=== PATIENT | male | born 1975 | race Caucasian/White ===

== ENCOUNTER 2021-06-23 06:09 | Outpatient (REF) | payer BC, SELFPAY ==
[2021-06-23 11:15] LABS: MANUAL DIFF FLAG NO
[2021-06-23 11:31] LABS: Basophils Percent Auto 0.6 % (0-2); Eosinophils Absolute Auto 0.1 X10*3/uL (0.0-0.4); Hematocrit 41.8 % (42-52); Hemoglobin 13.9 g/dl (14.0-18.0); Imm Gran Abs Auto 0.01 X10*3/uL (0.00-0.03); Imm Gran Pct Auto 0.2 % (0.0-0.4); Lymphocytes Absolute Auto 1.8 X10*3/uL (1.2-4.9); Lymphocytes Percent Auto 34.9 % (20-40); Mean Corpuscular HGB Conc 33.3 g/dl (31.0-36.0); Mean Corpuscular Hemoglobin 29.2 pg (27.0-33.0); Mean Corpuscular Volume 87.8 fL (80-98); Mean Platelet Volume 10.8 fL (9.4-12.4); Monocytes Absolute Auto 0.5 X10*3/uL (0.1-1.2); Monocytes Percent Auto 9.6 % (2-11); Neutrophils Absolute Auto 2.8 X10*3/uL (2.0-8.3); Neutrophils Percent Auto 53.7 % (45-73); Platelet Count 186 X10*3/uL (160-400); Red Blood Count 4.76 X10*6/uL (4.60-5.80); Red Cell Distribution Width 12.2 % (11.0-16.0); White Blood Count 5.1 X10*3/uL (4.8-10.8)
[2021-06-23 11:56] LABS: Alanine Aminotransferase 20 U/L (0-40); Albumin Level 4.3 g/dL (3.5-5.0); Alkaline Phosphatase 72 U/L (39-117); Anion Gap 14 (12-20); Aspartate Amino Transferase 34 U/L (5-37); Bilirubin Total 0.6 mg/dL (0.0-1.0); Blood Urea Nitrogen 12 mg/dL (9-16); Calcium 9.6 mg/dL (8.4-10.2); Carbon Dioxide 25 mmol/L (22-29); Chloride 107 mmol/L (96-108); Cholesterol 203 mg/dL; Estimated Glomerular Filt Rate > 60; Glucose Fasting 98 mg/dL (60-99); HDL Cholesterol 53 mg/dL; LDL Cholesterol Calculated 140 mg/dl; Potassium 4.1 mmol/L (3.3-5.1); Sodium 142 mmol/L (135-145); Total Protein 6.9 g/dL (6.5-8.0); Triglycerides 53 mg/dL
== END 2021-06-23 06:10 | disposition home or self-care (01) ==
LOC: HO.HMGCLDS 06:09
PROVIDERS: PCP Internal Medicine; Visit Provider Internal Medicine
DX: Z00.00 Encounter for general adult medical examination without abnormal findings (principal); E78.00 Pure hypercholesterolemia, unspecified
CPT/HCPCS: 36415; 80053; 80061; 85025

== ENCOUNTER 2022-07-10 06:09 | Outpatient (REF) | payer BC, SELFPAY ==
[2022-07-10 11:25] LABS: MANUAL DIFF FLAG NO
[2022-07-10 11:42] LABS: Basophils Percent Auto 0.7 % (0-2); Eosinophils Absolute Auto 0.1 X10*3/uL (0.0-0.4); Eosinophils Percent Auto 1.1 % (0-4); Hematocrit 43.4 % (42.0-52.0); Hemoglobin 14.3 g/dl (14.0-18.0); Lymphocytes Absolute Auto 1.5 X10*3/uL (1.2-4.9); Mean Corpuscular HGB Conc 32.9 g/dl (31.0-36.0); Mean Corpuscular Hemoglobin 28.4 pg (27.0-33.0); Mean Corpuscular Volume 86.1 fL (80.0-98.0); Mean Platelet Volume 10.6 fL (9.4-12.4); Monocytes Absolute Auto 0.5 X10*3/uL (0.1-1.2); Monocytes Percent Auto 10.2 % (2-11); Neutrophils Absolute Auto 2.4 x10*3/uL (2.0-8.3); Platelet Count 199 X10*3/uL (160-400); Red Blood Count 5.04 X10*6/uL (4.60-5.80); White Blood Count 4.4 X10*3/uL (4.8-10.8)
[2022-07-10 11:52] LABS: Appearance Urine Clear; Color Urine Yellow; Glucose Urine UA Negative (Negative); Leukocyte Esterase Urine Negative (Negative); Nitrite Urine Negative (Negative); PH 5.5 (5.0-9.0); Specific Gravity - Urine 1.015 (1.005-1.025); Urine Blood Negative (Negative); Urine Ketones Negative (Negative); Urine Protein Negative (Neg-Trace)
[2022-07-10 11:59] LABS: Bacteria Urine None Seen (None Seen); Hyaline Casts Urine 0-2 /LPF (0-2); RBC Urine 0-2 /HPF (0-2); Squamous Epithelial Cell Urine 0-2 /HPF (0-2); WBC Urine 0-5 /HPF (0-5)
[2022-07-10 12:10] LABS: Alanine Aminotransferase 27 U/L (0-40); Albumin Level 4.4 g/dL (3.5-5.0); Alkaline Phosphatase 76 U/L (39-117); Anion Gap 14 (12-20); Aspartate Amino Transferase 31 U/L (5-37); Bilirubin Total 0.6 mg/dL (0.0-1.0); Blood Urea Nitrogen 17 mg/dL (9-16); Calcium 9.4 mg/dL (8.4-10.2); Carbon Dioxide 26 mmol/L (22-29); Chloride 103 mmol/L (96-108); Cholesterol 235 mg/dL; Estimated Glomerular Filt Rate > 60; Glucose Fasting 105 mg/dL (60-99); HDL Cholesterol 52 mg/dL; LDL Cholesterol Calculated 169 mg/dl; Potassium 4.1 mmol/L (3.3-5.1); Sodium 139 mmol/L (135-145); Total Protein 7.2 g/dL (6.5-8.0); Triglycerides 74 mg/dL
[2022-07-10 12:17] LABS: Thyroid Stimulating Hormone 1.19 uIU/mL (0.32-4.0); Vitamin D 25-OH Total 35.7 ng/mL (>30)
== END 2022-07-10 06:10 | disposition home or self-care (01) ==
LOC: HO.HMGCLDS 06:09
PROVIDERS: PCP Internal Medicine; Visit Provider Internal Medicine
DX: Z00.00 Encounter for general adult medical examination without abnormal findings (principal); E78.00 Pure hypercholesterolemia, unspecified; J30.2 Other seasonal allergic rhinitis
CPT/HCPCS: 36415; 80053; 80061; 81001; 82306; 84443; 85025

== ENCOUNTER 2023-11-22 06:08 | Outpatient (REF) | payer BC, SELFPAY ==
[2023-11-22 11:44] LABS: Basophils Percent Auto 0.6 % (0-2); Eosinophils Absolute Auto 0.1 X10*3/uL (0.0-0.4); Eosinophils Percent Auto 0.9 % (0-4); Hematocrit 44.3 % (42.0-52.0); Hemoglobin 14.8 g/dl (14.0-18.0); Imm Gran Abs Auto 0.01 X10*3/uL (0.00-0.03); Imm Gran Pct Auto 0.2 % (0.0-0.4); Lymphocytes Absolute Auto 1.7 X10*3/uL (1.2-4.9); Lymphocytes Percent Auto 32.1 % (20-40); MANUAL DIFF FLAG NO; Mean Corpuscular HGB Conc 33.4 g/dl (31.0-36.0); Mean Corpuscular Hemoglobin 28.7 pg (27.0-33.0); Mean Corpuscular Volume 85.9 fL (80.0-98.0); Mean Platelet Volume 10.9 fL (9.4-12.4); Monocytes Absolute Auto 0.4 X10*3/uL (0.1-1.2); Monocytes Percent Auto 8.3 % (2-11); Neutrophils Absolute Auto 3.1 x10*3/uL (2.0-8.3); Neutrophils Percent Auto 57.9 % (45-73); Platelet Count 209 X10*3/uL (160-400); Red Blood Count 5.16 X10*6/uL (4.60-5.80); Red Cell Distribution Width 12.1 % (11.0-16.0); White Blood Count 5.3 X10*3/uL (4.8-10.8)
[2023-11-22 12:13] LABS: Alanine Aminotransferase 32 U/L (0-40); Albumin Level 4.3 g/dL (3.5-5.0); Alkaline Phosphatase 88 U/L (39-117); Anion Gap 9 (12-20); Aspartate Amino Transferase 27 U/L (5-37); Bilirubin Total 0.5 mg/dL (0.0-1.0); Blood Urea Nitrogen 14 mg/dL (9-16); Calcium 9.6 mg/dL (8.4-10.2); Carbon Dioxide 29 mmol/L (22-29); Chloride 106 mmol/L (96-108); Cholesterol 230 mg/dL (<200); Estimated Glomerular Filt Rate > 60; Glucose Fasting 83 mg/dL (60-99); HDL Cholesterol 47 mg/dL (>40); LDL Cholesterol Calculated 167 mg/dL (<100); Potassium 3.7 mmol/L (3.3-5.1); Sodium 140 mmol/L (135-145); Total Protein 7.3 g/dL (6.5-8.0); Triglycerides 81 mg/dL (<150)
[2023-11-22 12:18] LABS: Thyroid Stimulating Hormone 1.37 uIU/mL (0.32-4.0)
== END 2023-11-22 06:09 | disposition home or self-care (01) ==
LOC: HO.HMGCLDS 06:08
PROVIDERS: PCP Internal Medicine; Visit Provider Internal Medicine
DX: Z00.00 Encounter for general adult medical examination without abnormal findings (principal); E78.00 Pure hypercholesterolemia, unspecified; J30.2 Other seasonal allergic rhinitis
CPT/HCPCS: 36415; 80053; 80061; 84443; 85025

== ENCOUNTER 2024-03-21 06:10 | Outpatient (REF) | payer BC, SELFPAY ==
[2024-03-21 12:21] LABS: Alanine Aminotransferase 40 U/L (0-40); Albumin Level 4.1 g/dL (3.5-5.0); Alkaline Phosphatase 81 U/L (39-117); Anion Gap 11 (12-20); Aspartate Amino Transferase 51 U/L (5-37); Bilirubin Total 0.5 mg/dL (0.0-1.0); Blood Urea Nitrogen 14 mg/dL (9-16); Calcium 9.6 mg/dL (8.4-10.2); Carbon Dioxide 26 mmol/L (22-29); Chloride 106 mmol/L (96-108); Cholesterol 162 mg/dL (<200); Estimated Glomerular Filt Rate > 60; Glucose Fasting 93 mg/dL (60-99); HDL Cholesterol 47 mg/dL (>40); LDL Cholesterol Calculated 102 mg/dL (<100); Potassium 3.9 mmol/L (3.3-5.1); Sodium 139 mmol/L (135-145); Total Protein 7.1 g/dL (6.5-8.0); Triglycerides 68 mg/dL (<150)
== END 2024-03-21 06:11 | disposition home or self-care (01) ==
LOC: HO.HMGCLDS 06:10
PROVIDERS: PCP Internal Medicine; Visit Provider Internal Medicine
DX: E78.00 Pure hypercholesterolemia, unspecified (principal)
CPT/HCPCS: 36415; 80053; 80061

== ENCOUNTER 2024-11-21 13:24 | Outpatient (AMB) | payer BC, SELFPAY ==
--- NOTE | 2024-11-21 13:58 | A.OFFPC_ITS ---
Vital Signs 11/21/24 14:00 Height 6 ft 2 in Weight 207 lb BMI 26.6 BP 132/62 Blood Pressure Location Rt brachial Pulse 66 Pulse Source Pulse Oximeter Temp 97.1 F Pulse Oximetry (%) 96 Intake Visit Reasons: physical Intake Note: no other issues Allergies No Known Allergies Allergy (Verified 11/21/24 13:59) [facility] Medical History GERD (gastroesophageal reflux disease) Hyperlipidemia, unspecified Physical exam (Primary Care) Vital Signs: Last Vital Signs Temp 97.1 F 11/21/24 14:00 Pulse 66 11/21/24 14:00 BP 132/62 11/21/24 14:00 Pulse Ox 96 11/21/24 14:00 BMI result Body Mass Index 26.6 Coding Level of Care Code New Pt Prev Care 40-64y(69500) Diagnoses Hyperlipidemia, unspecified E78.5 GERD (gastroesophageal reflux disease) K21.9 Assessment & Plan Assessment & Plan (1) Hyperlipidemia, unspecified: Code(s): E78.5 - Hyperlipidemia, unspecified Category: Medical Plan: Fasting bw ordered. Will adjust statin dosage accordingly. (2) GERD (gastroesophageal reflux disease): Code(s): K21.9 - Gastro-esophageal reflux disease without esophagitis Category: Medical Plan: Continue PPI. Has a scheduled appt with GI. A screening colonoscopy has been planned. Plan History of Present Illness The patient is a 49-year-old male presenting to the office for an annual physical. Approximately one year ago, the patient began experiencing regular episodes of heartburn. In response, he started treatment with omeprazole, which proved effective in managing his symptoms. However, when discontinuing the medication, he observed that heartburn symptoms promptly reappeared. The patient has a pending appointment with a community health nurse supervisor scheduled for November. His past medical history includes hyperlipidemia, for which he takes a statin medication, initiated a few years prior, with no current issues requiring medication refills. 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 - Exercise: Engages in physical activity three to five times per week, although activity has recently decreased due to home renovations. - Substance Use: Consumes alcohol infrequently and denies tobacco use. Review of Systems - Gastrointestinal: Reports heartburn. - Eyes: Denies visual disturbances such as halos. - Genitourinary: Denies issues with urination. - Bowel Habits: Regular without complications. - Sexual Health: Denies erectile dysfunction. Physical Exam General: Cooperative and healthy appearing Nutritional Appearance: Well nourished Orientation/consciousness: Patient oriented x3 Limitations: No limitations Head: Normal to inspection General: Appearance normal, both eyes and all related structures Neck: Normal visual inspection Chest: Normal palpation of entire chest wall Respiratory: Normal respiratory effort Neurology: Patient oriented x3 Results - Recent blood work from October last year showed no abnormalities. Plan - Repeat blood work after fasting to monitor lipid levels and general health. - Continue current medications without any changes, including omeprazole for GERD and a statin for hyperlipidemia. - Seasonal allergies to be managed with existing [id number] medications as needed. - Follow up with the community health nurse supervisor for the scheduled colonoscopy and further evaluation of GERD symptoms. - Reassess in six months or as needed based on symptom changes or new concerns. Patient was informed and verbally consented to the use of an ambient scribe for clinic note documentation during this visit. Discussion Notes During the visit, we discussed the importance of continuing current medications for GERD and hyperlipidemia. The patient consented to repeat fasting blood tests to monitor lipid levels. I recommended maintaining dietary and exercise routines to support cardiovascular health. We discussed the planned colonoscopy and its role in preventative health screening. The patient appeared comfortable with the treatment strategy and agreed to follow up in six months unless new symptoms arise. Patient Instructions - Continue taking omeprazole as prescribed to manage heartburn. - Maintain current statin regimen for hyperlipidemia. - Perform fasting blood tests as ordered. - Consult the community health nurse supervisor for the scheduled colonoscopy and further management of reflux symptoms. - Resume regular exercise routines when possible. - Avoid tobacco products and limit alcohol consumption. - Schedule a follow-up appointment in six months. Orders: Orders Basic Metabolic Panel Today E78.5 - Hyperlipidemia, unspecified, K21.9 - Gastro-esophageal reflux disease without esophagitis Thyroid Stimulating Hormone Today E78.5 - Hyperlipidemia, unspecified, K21.9 - Gastro-esophageal reflux disease without esophagitis UA and rflx microscopic Today E78.5 - Hyperlipidemia, unspecified, K21.9 - Gastro-esophageal reflux disease without esophagitis Complete Blood Count no Diff Today E78.5 - Hyperlipidemia, unspecified, K21.9 - Gastro-esophageal reflux disease without esophagitis Lipid Panel Today E78.5 - Hyperlipidemia, unspecified, K21.9 - Gastro- esophageal reflux disease without esophagitis Liver Panel Today E78.5 - Hyperlipidemia, unspecified, K21.9 - Gastro- esophageal reflux disease without esophagitis
[2024-11-21 14:00] VITALS: BP 132/62; PULSE 66; TEMP 36.2; O2SAT 96; BMI 26.6
--- OUTSIDE RECORDS SUMMARY | 2024-11-21 16:29 | XMS_ITS ---
Author Organization Lakhwinder Bronson DO, FACRegla Address [address] [facility] [place] [phone] Care Team Providers Care Open Hearth Melter Name Role Phone Lakhwinder Bronson Primary Care Provider REASON FOR VISIT Message Encounters Encounter Location Date Provider Diagnosis Lakhwinder Bronson DO, FACP [address] [facility] [place] [id number] 04/12/2024 Lakhwinder Bronson PLAN OF TREATMENT No Information
--- OUTSIDE RECORDS SUMMARY | 2024-11-21 16:29 | XMS_ITS ---
Author Organization Lakhwinder Bronson DO, FACRegla Address [address] [facility] [place] [phone] Care Team Providers Care Ironer Hand Name Role Phone Lakhwinder Bronson Primary Care Provider REASON FOR VISIT Message Encounters Encounter Location Date Provider Diagnosis Lakhwinder Bronson DO, FACP [address] [facility] [place] [phone] 08/30/2024 Lakhwinder Bronson PLAN OF TREATMENT No Information
--- OUTSIDE RECORDS SUMMARY | 2024-11-21 16:29 | XMS_ITS | Patient Health Record ---
Author Organization Lakhwinder Bronson DO, FACP Address [address] [place] [address] [place] [phone] Care Team Providers Care Plumber Supervisor Name Role Phone Lakhwinder Bronson Primary Care Provider ALLERGIES No Known Allergies RESULTS Component Value Reference Range Notes Complete Blood Count Auto Di ff Reviewed date:11/22/2023 01:13:02 PM Interpretation:Normal Performing Lab:[facility], [address] [place] [phone] Notes/Report: White Blood Count 5.3 4.8-10.8 X10*3/uL Red Blood Count 5.16 4.60-5.80 X10*6/uL Hemoglobin 14.8 14.0-18.0 g/dl Hematocrit 44.3 42.0-52.0 % Mean Corpuscular Volume 85.9 80.0-98.0 fL Mean Corpuscular Hemoglobin 28.7 27.0-33.0 pg Mean Corpuscular HGB Conc 33.4 31.0-36.0 g/dl Red Cell Distribution Width 12.1 11.0-16.0 % Platelet Count 209 160-400 X10*3/uL Mean Platelet Volume 10.9 9.4-12.4 fL Neutrophils Percent Auto 57.9 45-73 % Imm Gran Pct Auto 0.2 0.0-0.4 % Lymphocytes Percent Auto 32.1 20-40 % Monocytes Percent Auto 8.3 2-11 % Eosinophils Percent Auto 0.9 0-4 % Basophils Percent Auto 0.6 0-2 % NRBC Pct Auto 0.0 0.0-0.2 /100WBC Neutrophils Absolute Auto 3.1 2.0-8.3 x10*3/u L Imm Gran Abs Auto 0.01 0.00-0.03 X10*3/uL Lymphocytes Absolute Auto 1.7 1.2-4.9 X10*3/u L Monocytes Absolute Auto 0.4 0.1-1.2 X10*3/uL Eosinophils Absolute Auto 0.1 0.0-0.4 X10*3/u L Basophils Absolute Auto 0.0 0.0-0.2 X10*3/uL NRBC Abs Auto 0.000 0.0-0.012 X10*3/uL Comprehensive [place]. Panel Fa st Reviewed date:11/22/2023 01:13:02 PM Interpretation:Normal Performing Lab:[facility], [address] [place] [phone] Notes/Report: Sodium 140 135-145 mmol/L Potassium 3.7 3.3-5.1 mmol/L Chloride 106 96-108 mmol/L Carbon Dioxide 29 22-29 mmol/L Anion Gap 9 12-20 Blood Urea Nitrogen 14 9-16 mg/dL Creatinine 1.05 0.5-1.4 mg/dL Estimated Glomerular Filt Rate > 60 NOTE: For -Ugandan individuals, multiply the result by 1.210. Chronic Kidney Disease: Estimated GFR < 60 mL/min/1.73m2 Severe Kidney Disease: Estimated GFR < 15 mL/min/1.73m2 Glucose Fasting 83 60-99 mg/dL Calcium 9.6 8.4-10.2 mg/dL Bilirubin Total 0.5 0.0-1.0 mg/dL Aspartate Amino Transferase 27 5-37 U/L Alanine Aminotransferase 32 0-40 U/L Total Protein 7.3 6.5-8.0 g/dL Albumin Level 4.3 3.5-5.0 g/dL Alkaline Phosphatase 88 39-117 U/L Lipid Panel Reviewed date:11/22/2023 03:51:03 PM Interpretation:Abnormal Performing Lab:[facility], [address] [place] [phone] Notes/Report: Triglycerides 81 <150 mg/dL Desirable Triglyceride: less than 150 mg/dL Borderline High Triglyceride 150-199 mg/dL High Triglyceride: 200-499 mg/dL Very High Triglyceride: greater than or equal to 5OO mg/dL Cholesterol 230 <200 mg/dL Desirable Cholesterol: less than 200 mg/dL Borderline High Cholesterol: 200-239 mg/dL High Cholesterol: greater than 239 mg/dL LDL Cholesterol Calculated 167 <100 mg/dL Desirable LDL: less than 100 mg/dL Near Optimal/Above Optimal LDL: 110-129 mg/dL Borderline High LDL: 130-159 mg/dL High LDL: 160-189 mg/dL Very High LDL: greater than or equal to 190 mg/dL HDL Cholesterol 47 >40 mg/dL Desirable HDL: greater than 40 mg/dL Note: This HDL assay may give artificially low results in patients with liver disease. Thyroid Stimulating Hormone Reviewed date:11/22/2023 01:13:02 PM Interpretation:Normal Performing Lab:[address] [phone] Notes/Report: Thyroid Stimulating Hormone 1.37 0.32-4.0 uIU/ mL TSH 3rd Generation ([facility]) Comprehensive [place]. Panel Fa Reviewed date:03/21/2024 12:37:50 PM Interpretation:Abnormal Performing Lab:[facility], [address] [place] [phone] Notes/Report: Sodium 139 135-145 mmol/L Potassium 3.9 3.3-5.1 mmol/L Chloride 106 96-108 mmol/L Carbon Dioxide 26 22-29 mmol/L Anion Gap 11 12-20 Blood Urea Nitrogen 14 9-16 mg/dL Creatinine 0.93 0.5-1.4 mg/dL Estimated Glomerular Filt Rate > 60 NOTE: For -Ugandan individuals, multiply the result by 1.210. Chronic Kidney Disease: Estimated GFR < 60 mL/min/1.73m2 Severe Kidney Disease: Estimated GFR < 15 mL/min/1.73m2 Glucose Fasting 93 60-99 mg/dL Calcium 9.6 8.4-10.2 mg/dL Bilirubin Total 0.5 0.0-1.0 mg/dL Aspartate Amino Transferase 51 5-37 U/L Alanine Aminotransferase 40 0-40 U/L Total Protein 7.1 6.5-8.0 g/dL Albumin Level 4.1 3.5-5.0 g/dL Alkaline Phosphatase 81 39-117 U/L Lipid Panel Reviewed date:03/21/2024 12:37:36 PM Interpretation:Normal Performing Lab:[facility], [address] [place] [phone] Notes/Report: Triglycerides 68 <150 mg/dL Desirable Triglyceride: less than 150 mg/dL Borderline High Triglyceride 150-199 mg/dL High Triglyceride: 200-499 mg/dL Very High Triglyceride: greater than or equal to 5OO mg/dL Cholesterol 162 <200 mg/dL Desirable Cholesterol: less than 200 mg/dL Borderline High Cholesterol: 200-239 mg/dL High Cholesterol: greater than 239 mg/dL LDL Cholesterol Calculated 102 <100 mg/dL Desirable LDL: less than 100 mg/dL Near Optimal/Above Optimal LDL: 110-129 mg/dL Borderline High LDL: 130-159 mg/dL High LDL: 160-189 mg/dL Very High LDL: greater than or equal to 190 mg/dL HDL Cholesterol 47 >40 mg/dL Desirable HDL: greater than 40 mg/dL Note: This HDL assay may give artificially low results in patients with liver disease. REASON FOR REFERRAL Reason Cyst or wart, right leg Diagnosis 1 Epidermal cyst (L72. 0) Referral Organization Lakhwinder Hinds FACP Referring Provider First Name Lakhwinder Referring Provider Last Name Aiyana Referring Provider Speciality Internal edicine Referred Provider Sanna Nguyen Referred Provider Specialty Dermatology General Notes Sarah Haile 4 12:52:50 PM EDT > Dr. Nguyen's office ask that patient call to set up appointment and patient is aware. Clinical Notes Latrice Ariza 024 11:17:52 AM EDT > REFERRAL GENERATED BASED ON TELEPHONE ENCOUNTER WITH PATIENT Referral Priority Routine Reason Colonoscopy Screenin g Diagnosis 1 Colon cancer screeni ng (Z12.11) Referral Organization Lakhwinder Hinds FACP Referring Provider First Name Lakhwinder Referring Provider Jaylan Name Aiyana Referring Provider Speciality Internal edicine Referred Provider Talha Carolina Referred Provider Specialty Gastroentero logy General Notes Sarah Haile 4 04:09:31 PM EST > Referral faxed prior to scheduling Referral Priority Routine MEDICATIONS Medication SIG (Take, Route, Frequency, Duration) Notes Start Date End Date Status Ibuprofen 800 MG 1 tablet as needed O rally Three times a day 05/07/2015 Active Omeprazole 20 MG 1 capsule 30 minutes before morning meal Orally Once a day for 30 day(s) 11/22/2023 Active ZyrTEC Allergy 10 MG 1 tablet as needed Orally Once a day Active Atorvastatin Calcium 10 MG 1 tablet Oral ly Once a day for 90 days Active IMMUNIZATIONS Vaccine Route Administration Date Status Comme nts TDaP IM Intramuscular 04/30/2015 Administered Influenza Quad IM Intramuscular 07/03/2016 Administered Influenza Quad IM Intramuscular 07/11/2018 Administered Influenza Quad Unknown 07/16/2021 Administered COVID-19 Moderna Vaccine Unknown 08/06/2021 Administere d Influenza Unknown 08/12/2014 Administered Influenza Quad Unknown 06/12/2022 Administered COVID-19 Pfizer BioNTech Unknown 01/02/2021 Administere d COVID-19 Pfizer BioNTech Unknown 01/23/2021 Administere d Influenza Quad Unknown 07/03/2019 Administered Influenza Quad Unknown 07/23/2017 Administered Influenza Quad Unknown 06/28/2020 Administered Influenza Quad Unknown 07/10/2023 Administered SOCIAL HISTORY Tobacco Use: Social History Observation Description Date Details (start date - stop date) Former Smoker NA - NA Sex Assigned At : Social History Observation Description Sex Assigned At Unknown Tobacco Use/Smoking Question Answer Notes Patient is a former smoker How long has it been since y ou last smoked? > 10 years Additional Findings: Tobacco Non-User Fo rmer smoker, currently using no form of tobacco Alcohol Screen Question Answer Notes Did you have a drink contain ing alcohol in the past year? Yes How often did you have a dri nk containing alcohol in the past year? 2 to 4 times a month (2 points) How many drinks did you have on a typical day when you were drinking in the past year? 1 or 2 drinks (0 point) How often did you have 6 or more drinks on one occasion in the past year? Never (0 point) Points 2 Interpretation Negative PROBLEMS Problem Type ICD Code Onset Dates Problem Status W/U Status Risk SNOMED Code Notes Problem Seasonal allergies (J30.2) Active confirmed 074445240 Problem Hypercholesterolemia (E78.00) Active confirmed [id number] Encounters Encounter Location Date Provider Diagnosis Lakhwinder Bronson DO, [facility] [address] [place], [place] [phone] 11/14/2024 Lakhwinder Bronson DO, [facility] [address] [place], [place] [id number] 11/22/2023 Lakhwinder Bronson Hypercholesterolemia E78.00 Lakhwinder Bronson DO, [facility] [address] [place], [place] [phone] 04/12/2024 Lakhwinder Bronson DO, [facility] [address] [place], [place] [phone] 08/30/2024 Lakhwinder Bronson DO, [facility] [address] [place], [place] [phone] 02/18/2024 Lakhwinder Bronson DO, [facility] [address] [place], [place] [phone] 02/18/2024 Lakhwinder Bronson ASSESSMENTS Encounter Date Diagnosis Assessment Notes Treatment Notes Treatment Clinical Notes 11/22/2023 Hypercholesterolemia (ICD-10 - E78.00) PLAN OF TREATMENT No Information Insurance Providers Payer Name Payer Address Payer Phone Subscriber Number Group Number Insured Name Patient Relationship to Insured Coverage Start Date Coverage End Date [facility] [address] [place], [place] [id number] Arturo Cherry Self - patient is the insured 9 MEDICAL (GENERAL) HISTORY Medical History History ICD Code hypercholesterolemia dermatitis seasonal allergies Surgical History Surgery Date(Month/Year) right shoulder surgery for repeated disl ocations wisdom teeth extraction vasectomy 03/2017
--- OUTSIDE RECORDS SUMMARY | 2024-11-21 16:30 | XMS_ITS ---
Author Organization Lakhwinder Bronson DO, FACP Address [address] [facility] [place] [id number] Care Team Providers Care Is/It Project Manager Name Role Phone Lakhwinder Bronson Primary Care Provider Encounters Encounter Location Date Provider Diagnosis Lakhwinder Bronson DO, FACP [address] [facility] [place] [phone] 11/14/2024 Lakhwinder Bronson PLAN OF TREATMENT No Information
== END 2024-11-21 14:20 | disposition home or self-care (01) ==
LOC: HO.HMCSH 13:24
PROVIDERS: PCP Internal Medicine; Visit Provider Internal Medicine
DX: Z00.00 Encounter for general adult medical examination without abnormal findings (principal); E78.5 Hyperlipidemia, unspecified; K21.9 Gastro-esophageal reflux disease without esophagitis

== ENCOUNTER 2025-02-09 07:39 | Day surgery (SDC) | payer BC, SELFPAY ==
[2025-02-07 08:42] VITALS: BMI 26.5
[2025-02-09] VITALS (7 sets, daily range): BP systolic 94–123; BP diastolic 55–74; PULSE 57–69; RESP 11–18; TEMP 36.1–36.8; O2SAT 94–98; BMI 26.6
[2025-02-09] MEDS: Lactated Ringers 1,000 ML 100 ML IVCONT (09:05)
--- NOTE | 2025-02-09 09:35 | P.CONAN_ITS ---
Documented by User: Wilda Ramirez NP 02/08/25 14:08 HPI - Anesthesia Eval Consult details Narrative: 49yo M for Upper Endoscopy and Colonoscopy [facility] Active Problems Active Problems: All Active Problems GERD (gastroesophageal reflux disease) (Acute) Hyperlipidemia, unspecified (Acute) Past Medical History Medical History GERD (gastroesophageal reflux disease) Hyperlipidemia, unspecified Surgical History Surgical History Hx of wisdom tooth extraction Hx of shoulder surgery Social History Social History (Updated 02/07/25 @ 08:43 by Diamond Shannon RN) Household Members: Spouse Are you a primary acute care clinical nurse specialist to a significant other at home: No Do you presently have visiting nurse or other home services: No Patient Tobacco Use Status: Former Tobacco user Have you been hit, kicked, punched, or otherwise hurt by someone within the past year? If so, by whom?: No Are you DNR?: No Advance Directives: No Advance Directives Information Provided: Yes Poor oral hygiene: No Meds Allergies Allergy/AdvReac Type Severity Reaction Status Date / Time No Known Allergies Allergy Verified 02/09/25 09:02 Home Medications ?Medication ?Instructions ?Recorded ?Confirmed ?Last Taken ?Type omeprazole 20 mg capsule,delayed 20 mg PO DAILY 11/21/24 02/07/25 Unknown History release cetirizine 10 mg tablet 10 mg PO DAILY 02/07/25 02/07/25 Unknown History Exam Height,Weight and Vital Signs: Height 6 ft 2 in Weight 93.621 kg Assessment and Plan Assessment Anesthesia Assessment: Chart Reviewed Documented by User: Pati Spears DO 02/09/25 09:52 [facility] Past Medical History Medical History GERD (gastroesophageal reflux disease) Hyperlipidemia, unspecified Family History Family history of problems with anesthesia: No Surgical History Surgical History Hx of wisdom tooth extraction Hx of shoulder surgery History of Problems with Anesthesia: No Social History Social History (Updated 02/07/25 @ 08:43 by Diamond Shannon RN) Household Members: Spouse Are you a primary acute care clinical nurse specialist to a significant other at home: No Do you presently have visiting nurse or other home services: No Patient Tobacco Use Status: Former Tobacco user Have you been hit, kicked, punched, or otherwise hurt by someone within the past year? If so, by whom?: No Are you DNR?: No Advance Directives: No Advance Directives Information Provided: Yes Poor oral hygiene: No Meds Allergies Allergy/AdvReac Type Severity Reaction Status Date / Time No Known Allergies Allergy Verified 02/09/25 09:02 Home Medications ?Medication ?Instructions ?Recorded ?Confirmed ?Last Taken ?Type omeprazole 20 mg capsule,delayed 20 mg PO DAILY 11/21/24 02/07/25 Unknown History release cetirizine 10 mg tablet 10 mg PO DAILY 02/07/25 02/07/25 Unknown History Exam Exam Date and Time: 02/09/25 0935 Height,Weight and Vital Signs: Height 6 ft 2 in Weight 93.621 kg Vital Signs Temperature 98.2 F 02/09/25 09:11 Pulse Rate 57 02/09/25 09:11 Respiratory Rate 18 02/09/25 09:11 Blood Pressure 123/74 02/09/25 09:11 Pulse Oximetry 97 02/09/25 09:11 Oxygen Delivery Method Room Air 02/09/25 09:11 Temperature 98.2 F 02/09/25 09:11 Pulse Rate 57 02/09/25 09:11 Respiratory Rate 18 02/09/25 09:11 Blood Pressure 123/74 02/09/25 09:11 Pulse Oximetry 97 02/09/25 09:11 Oxygen Delivery Method Room Air 02/09/25 09:11 Airway Mallampati Class: I TM Dist: >3cm Neck ROM: Full Loose/Missing/Broken Teeth: No (patient denies any loose or broken teeth) Heart: S1S2 Lungs: CTAB Assessment and Plan Assessment Anesthesia Assessment: Anesthesia Plan Discussed and Chart Reviewed Final Anesthetic Review Family History of Problems with Anesthesia: No History of Problems with Anesthesia: No NPO: Yes ASA Class: II Final Preanesthetic Review: No Changes in Pt Med Stat, Meds/Allgs Chart Reviewed, Consent Obtained/Reviewed and Anes Risks/Benef Reviewed Patient Risk: Low Procedure Risk: Low Anesthetic Plan Anesthetic Plan: MAC: and Agree w/ Assess. and Plan Disposition: Standard PACU
--- NOTE | 2025-02-09 10:04 | MHC.SHP ---
Pre-Procedural Eval Section A - 24 Hr Update-Section A only Date of Service: 02/09/25 Section B - Complete if H&P > 30 days Chief Complaint: gerd,screening Details of Present Illness: see H&P no changes Relevant Family History (Specify if Yes): No Relevant Social History: None Present Medications: see Short Stay Collaborative assessment Medical History: No relevant PMH History of Previous Operations: No relevant previous surgery Allergies: Allergies Allergy/AdvReac Type Severity Reaction Status Date / Time No Known Allergies Allergy Verified 02/09/25 09:02 Review of Systems Sugical H&P ROS: Negative: Constitution, Cardiovascular, Respiratory, Neurological, Psychiatric, Hem-Onc, Allergic/Immunologic, Gastrointestinal, Genitourinary, Musculoskeletal, Integumentary, Endocrine and Eyes/Ears/Nose/Throat Exam Surgical H&P Exam: Normal: HEENT, Normal: Heart, Normal: Lungs, Normal: Extremities, Normal: Abdomen, Normal: Skin and Normal: Neurological Plan Diagnosis/Plan: Unchanged I have reviewed the history and physical and performed a pertinent physical examination on my patient. No changes have occurred unless specified. Time Spent With Patient Time: Total time managing care of this patient today ____ minutes.
--- NOTE | 2025-02-09 11:18 | OP_ITS ---
DATE OF SERVICE: 02/09/2025 SURGEON: Talha Carolina MD INDICATIONS: 1. Gastroesophageal reflux disease. 2. Colon cancer screening. PREOPERATIVE DIAGNOSIS: POSTOPERATIVE DIAGNOSIS: PROCEDURE PERFORMED: Upper endoscopy with biopsy, colonoscopy to the terminal ileum with biopsy. ESTIMATED BLOOD LOSS: COMPLICATIONS: ANESTHESIA: Monitored anesthesia care. ASSISTANTS: SPECIMENS: DESCRIPTION OF PROCEDURE: A history and physical performed. The risks and benefits of the procedure were explained to the patient. Informed consent was obtained. The patient was placed in the left lateral decubitus position. The Olympus videogastroscope was introduced into the esophagus, stomach, and duodenum. Examination was performed. The scope was removed. He was repositioned for colonoscopy. A digital rectal exam was performed and was found to be normal. The Olympus pediatric videocolonoscope was introduced into the rectum and advanced to the cecum. The cecum was identified by transillumination, palpation, and identification of ileocecal valve. Examination was performed. The scope was removed. He tolerated both procedures well and was returned to recovery area in stable condition. 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 This extended from the EG junction at 39 cm to about 33 cm. There were no raised lesions or ulcerated areas. Biopsies were obtained in all 4 quadrants every 2 cm. There was no associated esophagitis. Stomach: The stomach was normal. Antral biopsies were obtained. Duodenum: The bulb and 2nd portion were normal. Colonoscopy: The terminal ileum was normal, visualized colonic mucosa was normal. In the right colon, there was a less than 5 mm sessile polyp, which was removed with biopsy forceps. There was sigmoid diverticulosis and diverticulosis involving the right colon. Retroflexed examination showed small internal hemorrhoids. The quality of the prep was good. IMPRESSION: 1. Gastroesophageal reflux disease, rule out Davis esophagus. 2. Colon polyp. RECOMMENDATIONS: Follow up the biopsy results. MD DEREK Toribio/BALJEET / [id number] MTDD
== END 2025-02-09 12:07 | disposition home or self-care (01) ==
PROVIDERS: PCP Internal Medicine; Visit Provider Internal Medicine Gastroenterology
PROC: (CPT 45380; principal; 2025-02-09 10:30)
DX: Z12.11 Encounter for screening for malignant neoplasm of colon (principal); K63.5 Polyp of colon; K57.30 Diverticulosis of large intestine without perforation or abscess without bleeding; K64.8 Other hemorrhoids; K21.9 Gastro-esophageal reflux disease without esophagitis; K22.70 Barrett's esophagus without dysplasia; K29.50 Unspecified chronic gastritis without bleeding; E78.5 Hyperlipidemia, unspecified; Z79.899 Other long term (current) drug therapy; Z98.890 Other specified postprocedural states
CPT/HCPCS: 45380; 43239; 88305; 88313; 88342; J2003; J2704

== ENCOUNTER 2025-07-27 06:05 | Outpatient (REF) | payer BC, SELFPAY ==
[2025-07-27 10:42] LABS: Hematocrit 43.4 % (42.0-52.0); Hemoglobin 14.1 g/dl (14.0-18.0); Mean Corpuscular HGB Conc 32.5 g/dl (31.0-36.0); Mean Corpuscular Hemoglobin 28.6 pg (27.0-33.0); Mean Corpuscular Volume 88.0 fL (80.0-98.0); NRBC Abs Auto 0.000 X10*3/uL (0.0-0.012); NRBC Pct Auto 0.0 /100WBC (0.0-0.2); Platelet Count 204 X10*3/uL (160-400); Red Blood Count 4.93 X10*6/uL (4.60-5.80); White Blood Count 4.5 X10*3/uL (4.8-10.8)
[2025-07-27 10:46] LABS: Appearance Urine Clear; Glucose Urine UA Negative (Negative); PH 5.5 (5.0-9.0); Specific Gravity - Urine 1.020 (1.005-1.025)
[2025-07-27 11:08] LABS: Alanine Aminotransferase 33 U/L (0-40); Albumin Level 4.5 g/dL (3.5-5.0); Alkaline Phosphatase 81 U/L (39-117); Anion Gap 10 (12-20); Aspartate Amino Transferase 43 U/L (5-37); Blood Urea Nitrogen 16 mg/dL (9-16); Calcium 9.4 mg/dL (8.4-10.2); Carbon Dioxide 27 mmol/L (22-29); Chloride 109 mmol/L (96-108); Cholesterol 178 mg/dL (<200); Estimated Glomerular Filt Rate > 60; HDL Cholesterol 52 mg/dL (>40); Potassium 4.1 mmol/L (3.3-5.1); Sodium 142 mmol/L (135-145); Total Protein 7.3 g/dL (6.5-8.0); Triglycerides 65 mg/dL (<150)
[2025-07-27 11:26] LABS: Thyroid Stimulating Hormone 1.38 uIU/mL (0.32-4.0)
== END 2025-07-27 06:06 | disposition home or self-care (01) ==
LOC: HO.HMGCLDS 06:05
PROVIDERS: PCP Internal Medicine; Visit Provider Internal Medicine
DX: K21.9 Gastro-esophageal reflux disease without esophagitis (principal); E78.5 Hyperlipidemia, unspecified
CPT/HCPCS: 36415; 80048; 80061; 80076; 81003; 84443; 85027

== ENCOUNTER 2025-08-13 08:08 | Outpatient (AMB) | payer BC, SELFPAY ==
--- NOTE | 2025-08-13 08:14 | A.OFFPC_ITS ---
Vital Signs 08/13/25 08:21 Weight 221 lb BP 133/78 Blood Pressure Location Rt brachial Pulse 65 Pulse Source Pulse Oximeter Temp 97.2 F Pulse Oximetry (%) 98 Intake Visit Reasons: 6 month f/u Allergies No Known Allergies Allergy (Verified 08/13/25 08:38) Medication List - Last Reconciled 08/13/25 by Hector Coe MD atorvastatin 10 mg PO DAILY cetirizine 10 mg PO DAILY omeprazole 20 mg PO DAILY Dental Screening Dental Screen Date: 08/13/25 Did you have a dental visit in the last 12 months?: Yes Did you have a dental problem in the last 6 months where you did not have access to dental care?: No Was dental information given to patient?: Patient has dentist HPI 6 month f/u HPI Details 49-year-old male presents to the office to discuss his chronic medical conditions. Patient is in good health and compliant with medications. He has no specific complaints. Able to function and do all activities of daily living. Currently on a sabbatical. Exercises regularly. [facility], [facility] Medical History Encounter for screening colonoscopy (02/09/25) GERD (gastroesophageal reflux disease) Hyperlipidemia, unspecified Surgical History Hx of wisdom tooth extraction Hx of shoulder surgery Social History Household Members: Spouse Are you a primary field care advocate to a significant other at home: No Do you presently have visiting nurse or other home services: No Patient Tobacco Use Status: Former Tobacco user Questionnaire PHQ-9 Over the last 2 weeks, how often have you been bothered by any of the following problems? 1. Little interest or pleasure in doing things: not at all 2. Feeling down, depressed, or hopeless: not at all 3. Trouble falling or staying asleep, or sleeping too much: not at all 4. Feeling tired or having little energy: not at all 5. Poor appetite or overeating: not at all 6. Feeling bad about yourself - or that you are a failure or have let yourself or your family down: not at all 7. Trouble concentrating on things, such as reading the newspaper or watching television: not at all 8. Moving or speaking so slowly that other people could have noticed. Or the opposite - being so fidgety or restless that you have been moving around a lot more than usual: not at all 9. Thoughts that you would be better off or of hurting yourself in some way: not at all Total score: 0 Source: Developed by Drs. Lakhwinder Titus, Stephanie Bain, Carlos Desir and colleagues, with an educational anirudh from [employer]. Thrive Questionnaire Date Thrive assessed: 08/13/25 I am a: Patient What is your living situation today?: I have a steady place to live Within the past 12 months, did the food you bought not last and you didn't have the money to get more?: Never true Within the past 12 months, did you worry whether your food would run out before you got money to buy more?: Never true Do you have trouble paying for medicines?: No Do you have trouble getting transportation to medical appointments?: No Do you have trouble paying your heating and electricity bill?: No Do you have trouble taking care of your child, family member or friend?: No Do you have trouble with day-to-day activities such as bathing, preparing meals, shopping, managing finances, etc.?: No Are you currently unemployed and looking for a job?: No Are you interested in more education?: No THRIVE Score: 0 AUDIT C Alcohol Use Questionnaire (AUDIT-C) 1. How often do you have a drink containing alcohol?: 2-4 times a month 2. How many drinks containing alcohol do you have on a typical day when you are drinking?: 1 or 2 3. How often do you have six or more drinks on one occasion?: Less than monthly Total Score: 3 LANDON-7 AMB Questionnaire LANDON-7 Date LANDON - 7 assessed: 08/13/25 Feeling nervous, anxious, or on edge: 0 = Not at all Not being able to stop or control worryin = Not at all Worrying too much about different things: 0 = Not at all Trouble relaxin = Not at all Being so restless that it is hard to sit still: 0 = Not at all Becoming easily annoyed or irritable: 0 = Not at all Feeling afraid as if something awful might happen: 0 = Not at all Total LANDON-7 score (0-4 normal; 5-9 mild; 10-14 moderate; 15-21 severe): 0 Source: Developed by Drs. Lakhwinder Titus, Stephanie Bain, Carlos Desir and colleagues, with an educational anirudh from [employer]. Physical exam (Primary Care) Vital Signs: Last Vital Signs Temp 97.2 F 08/13/25 08:21 Pulse 65 08/13/25 08:21 BP 133/78 08/13/25 08:21 Pulse Ox 98 08/13/25 08:21 Tobacco/Smoking Status: Tobacco use Status Patient Tobacco Use Status Former Tobacco user 08/13/25 08:22 PHQ-9: PHQ-9 Score PHQ-9: Total score 0 08/13/25 08:22 Thrive Assessment: Date of Thrive Assessment Date Thrive assessed 08/13/25 08/13/25 08:22 Const General: cooperative and healthy appearing Nutritional Appearance: well nourished Orientation/consciousness: patient oriented x3 Limitations: no limitations HENMT Head: Yes normal to inspection Eyes General: appearance normal, both eyes and all related structures Neck Neck: Yes normal visual inspection Chest Chest palpation & inspection: normal palpation of entire chest wall Resp Effort & Inspection: normal respiratory effort Neuro General: patient oriented x3 Office Procedures Flu Questionnaire Does the patient have a severe egg allergy?: No Does the patient have severe life threatening allergies?: No Does the patient have a fever or illness today?: No Has the patient ever had Guillain-Veradale Syndrome?: No Has the patient ever had any past reaction to a flu shot?: No Immunizations Fluarix [id number] (PF) 45 mcg (15 mcg x 3)/0.5 mL IM syringe Performing Provider: Hector Coe MD [facility] Documented (not given) by: Sarah Haile on 08/13/25 08:23 Dose Route Admin Location Dispensed Lot Number Expiration Date NDC [employer] Assistant 0.5 mL IM mL VIS Given Date VIS Provided VIS Publication Date 08/13/25 Single Vaccine 24 Eligibility Eligibility Date Funding Source Coding Level of Care Code Est Pt Level 4 (46340) Complex EM visit Add On G2211 Diagnoses Hyperlipidemia, unspecified E78.5 GERD (gastroesophageal reflux disease) K21.9 Assessment & Plan Assessment & Plan (1) Hyperlipidemia, unspecified: Code(s): E78.5 - Hyperlipidemia, unspecified Category: Medical Plan: Blood work reviewed. LDL is in range. Continue statins at the same dosage. (2) GERD (gastroesophageal reflux disease): Code(s): K21.9 - Gastro-esophageal reflux disease without esophagitis Category: Medical Plan: Continue PPI at the same dosage. Orders: Orders Influenza [id number] Immunization Today Z23 - Encounter for immunization Medications: New Fluarix [id number] (PF) (flu vac ts (6mos up)-PF) 0.5 mL IM ONCE 0.5 mL 0RF NS Z23 - Encounter for immunization
[2025-08-13 08:21] VITALS: BP 133/78; PULSE 65; TEMP 36.2; O2SAT 98
== END 2025-08-13 08:32 | disposition home or self-care (01) ==
LOC: HO.HMCSH 08:08
PROVIDERS: PCP Internal Medicine; Visit Provider Internal Medicine
DX: E78.5 Hyperlipidemia, unspecified (principal); K21.9 Gastro-esophageal reflux disease without esophagitis; Z23 Encounter for immunization

== ENCOUNTER → 2025-08-13 08:08 | Outpatient (BNVA) | payer BC, SELFPAY | PROVIDERS: PCP Internal Medicine; Visit Provider Internal Medicine | DX: K21.9 Gastro-esophageal reflux disease without esophagitis (principal); E78.5 Hyperlipidemia, unspecified; Z28.89 Immunization not carried out for other reason; Z79.899 Other long term (current) drug therapy | CPT/HCPCS: 90471; 96127 ==